=== PATIENT | male | born 1950 | race Hispanic/Latino ===

== ENCOUNTER → 2018-12-19 | Outpatient (CLI) | payer OTHER | END | disposition home or self-care (01) | LOC: RAH 15:27 | PROVIDERS: ATTEND Internal Medicine | DX: N20.0 Calculus of kidney (principal); N13.30 Unspecified hydronephrosis; I70.90 Unspecified atherosclerosis; K76.0 Fatty (change of) liver, not elsewhere classified; K44.9 Diaphragmatic hernia without obstruction or gangrene; M47.815 Spondylosis without myelopathy or radiculopathy, thoracolumbar region | CPT/HCPCS: 74176 ==

== ENCOUNTER → 2019-01-18 | Outpatient (CLI) | payer OTHER ==
[~2019-01-18] MED LIST: IOHEXOL-350 75 ML VIAL IV ONE
== END | disposition home or self-care (01) ==
LOC: RAH 07:53
PROVIDERS: ATTEND Urology
DX: N28.9 Disorder of kidney and ureter, unspecified (principal)
CPT/HCPCS: 74170; Q9967

== ENCOUNTER → 2019-02-14 | Outpatient (CLI) | payer OTHER | END | disposition home or self-care (01) | LOC: RAH 15:02 | PROVIDERS: ATTEND Internal Medicine Cardiovascular Disease | DX: Z13.6 Encounter for screening for cardiovascular disorders (principal) | CPT/HCPCS: 75571 ==

== ENCOUNTER → 2019-06-20 | Outpatient (CLI) | payer OTHER ==
[~2019-06-20] MED LIST changes: +HONEY 1 APPL/ML TUBE TP ONE; -IOHEXOL-350 75 ML VIAL IV ONE; +SILVER NITRATE APPLICATOR 1 SWAB TP ONE
[2019-06-20 15:24] VITALS: BP 113/65
[2019-06-20 15:43] LABS: ALBUMIN 3.1 g/dL (3.5-5.0); CREATININE 1.1 mg/dL (0.5-1.5); CRP QUANTITATIVE 3.4 mg/L (0.00-9.0); POTASSIUM 4.5 mmol/L (3.5-5.1)
== END | disposition home or self-care (01) ==
LOC: WHH 14:00
PROVIDERS: ATTEND Family Medicine
DX: E11.621 Type 2 diabetes mellitus with foot ulcer (principal); L97.525 Non-pressure chronic ulcer of other part of left foot with muscle involvement without evidence of necrosis; I10 Essential (primary) hypertension; G82.20 Paraplegia, unspecified; Z99.3 Dependence on wheelchair; N28.9 Disorder of kidney and ureter, unspecified; Z85.53 Personal history of malignant neoplasm of renal pelvis; Z79.4 Long term (current) use of insulin
CPT/HCPCS: 11043; 36415; 80048; 82040; 85651; 86140; 87070; 87077; 87186; A6196

== ENCOUNTER → 2019-06-22 | Outpatient (CLI) | payer OTHER | END | disposition home or self-care (01) | LOC: WHH 13:55 | PROVIDERS: ATTEND Family Medicine | DX: E11.621 Type 2 diabetes mellitus with foot ulcer (principal); L97.521 Non-pressure chronic ulcer of other part of left foot limited to breakdown of skin; I10 Essential (primary) hypertension; G82.20 Paraplegia, unspecified; N28.9 Disorder of kidney and ureter, unspecified; Z79.4 Long term (current) use of insulin; Z85.53 Personal history of malignant neoplasm of renal pelvis; Z99.3 Dependence on wheelchair | CPT/HCPCS: 93922 ==

== ENCOUNTER → 2019-06-27 | Outpatient (CLI) | payer OTHER ==
[~2019-06-27] MED LIST changes: -HONEY 1 APPL/ML TUBE TP ONE; +LIDOCAINE/PRILOCAINE CREAM 5GM TUBE TP ONE; -SILVER NITRATE APPLICATOR 1 SWAB TP ONE
[2019-06-27 15:23] VITALS: BP 106/60
== END | disposition home or self-care (01) ==
LOC: WHH 13:40
PROVIDERS: ATTEND Family Medicine
DX: E11.621 Type 2 diabetes mellitus with foot ulcer (principal); L97.525 Non-pressure chronic ulcer of other part of left foot with muscle involvement without evidence of necrosis; L84 Corns and callosities; I10 Essential (primary) hypertension; G82.20 Paraplegia, unspecified; N28.9 Disorder of kidney and ureter, unspecified; Z99.3 Dependence on wheelchair; Z85.53 Personal history of malignant neoplasm of renal pelvis; Z79.4 Long term (current) use of insulin
CPT/HCPCS: 11043; A6213; J3490; 11042

== ENCOUNTER → 2019-07-07 | Outpatient (CLI) | payer OTHER ==
[2019-07-07 14:25] VITALS: BP 108/67
== END | disposition home or self-care (01) ==
LOC: WHH 13:15
PROVIDERS: ATTEND Family Medicine
DX: E11.621 Type 2 diabetes mellitus with foot ulcer (principal); L97.525 Non-pressure chronic ulcer of other part of left foot with muscle involvement without evidence of necrosis; L84 Corns and callosities; I10 Essential (primary) hypertension; G82.20 Paraplegia, unspecified; N28.9 Disorder of kidney and ureter, unspecified; Z99.3 Dependence on wheelchair; Z85.53 Personal history of malignant neoplasm of renal pelvis; Z79.4 Long term (current) use of insulin
CPT/HCPCS: 11044; 73630; 87070; 87077; 87186; A6196

== ENCOUNTER → 2019-07-12 | Outpatient (CLI) | payer OTHER ==
[2019-07-12 13:47] VITALS: BP 104/62
== END | disposition home or self-care (01) ==
LOC: WHH 08:00
PROVIDERS: ATTEND Podiatrist Foot & Ankle Surgery
DX: E11.621 Type 2 diabetes mellitus with foot ulcer (principal); L97.525 Non-pressure chronic ulcer of other part of left foot with muscle involvement without evidence of necrosis; I10 Essential (primary) hypertension; G82.20 Paraplegia, unspecified; N28.9 Disorder of kidney and ureter, unspecified; Z99.3 Dependence on wheelchair; Z79.4 Long term (current) use of insulin
CPT/HCPCS: A6196; G0463

== ENCOUNTER → 2019-07-19 | Outpatient (CLI) | payer OTHER ==
[~2019-07-19] MED LIST changes: +AMPICILLIN PO; +BACL10TA PO; -LIDOCAINE/PRILOCAINE CREAM 5GM TUBE TP ONE; +LISI1TAB32 PO; +METO-408 PO; +PRAV20TA4 PO; +SOLI5TAB6 PO
[2019-07-19 11:49] VITALS: BP 126/76
== END | disposition home or self-care (01) ==
LOC: WHH 08:00
PROVIDERS: ATTEND Podiatrist Foot & Ankle Surgery
DX: E11.621 Type 2 diabetes mellitus with foot ulcer (principal); L97.521 Non-pressure chronic ulcer of other part of left foot limited to breakdown of skin; E11.69 Type 2 diabetes mellitus with other specified complication; M86.8X7 Other osteomyelitis, ankle and foot; I10 Essential (primary) hypertension; N28.9 Disorder of kidney and ureter, unspecified; G82.20 Paraplegia, unspecified; Z99.3 Dependence on wheelchair; Z85.53 Personal history of malignant neoplasm of renal pelvis; Z79.4 Long term (current) use of insulin
CPT/HCPCS: A6196; G0463

== ENCOUNTER 2019-07-21 10:26 | Day surgery (SDC) | payer OTHER ==
[2019-07-19 10:40] VITALS: BP 143/88
[2019-07-19 11:00] LABS: POTASSIUM 4.7 mmol/L (3.5-5.1)
[~2019-07-21] VITALS: Ht 175.3 cm; Wt 108.9 kg
[2019-07-21] VITALS (16 sets, daily range): BP systolic 118–135; BP diastolic 61–83
[~2019-07-21 10:26] MED LIST changes: +HONEY 1 APPL/ML TUBE TP SCH
[2019-07-21] MEDS ORDERED: SODIUM CHLORIDE 0.9% 1000ML 1,000 ML IV ONE (11:35)
[2019-07-21] MEDS ORDERED: LIDOCAINE PF 2% 5ML ABBOJECT ONE (13:01)
[2019-07-21] MEDS ORDERED: PROPOFOL 10 MG/ML 20ML VIAL IV ONE (13:01)
[2019-07-21] MEDS ORDERED: FENTANYL CITRATE PF 50 MCG/1 ML 2ML VIAL ONE (13:02)
[2019-07-21] MEDS ORDERED: MIDAZOLAM HCL 1 MG/ML 2ML VIAL ONE (13:02)
[2019-07-21] MEDS ORDERED: ONDANSETRON HCL 4 MG/2 ML VIAL ONE (13:02)
[2019-07-21] MEDS ORDERED: DEXAMETHASONE SOD PHOSPHATE 10MG/ML 1ML VIAL ONE (13:02)
[2019-07-21] MEDS ORDERED: EPHEDRINE SULFATE 50 MG/ML AMPULE ONE (13:31)
== END 2019-07-21 16:14 | disposition home or self-care (01) ==
LOC: DAH 10:26
PROVIDERS: ATTEND Podiatrist Foot & Ankle Surgery
DX: E11.621 Type 2 diabetes mellitus with foot ulcer (principal); L97.529 Non-pressure chronic ulcer of other part of left foot with unspecified severity; I70.25 Atherosclerosis of native arteries of other extremities with ulceration; E11.21 Type 2 diabetes mellitus with diabetic nephropathy; I12.9 Hypertensive chronic kidney disease with stage 1 through stage 4 chronic kidney disease, or unspecified chronic kidney disease; E11.22 Type 2 diabetes mellitus with diabetic chronic kidney disease; N18.2 Chronic kidney disease, stage 2 (mild); E78.2 Mixed hyperlipidemia; M81.0 Age-related osteoporosis without current pathological fracture; E66.01 Morbid (severe) obesity due to excess calories; Z68.35 Body mass index [BMI] 35.0-35.9, adult; Z88.8 Allergy status to other drugs, medicaments and biological substances; Z79.82 Long term (current) use of aspirin; Z79.899 Other long term (current) drug therapy; Z79.4 Long term (current) use of insulin; Z85.528 Personal history of other malignant neoplasm of kidney; Z98.49 Cataract extraction status, unspecified eye; Z90.5 Acquired absence of kidney
CPT/HCPCS: 28122; 36415; 80048; 82948 ×2; A4215; A4221; A4222; A4223; A4606; A4663; A5113; A6260; A6446; J1100; J2001; J2250; J2405; J2704; J3010; J3490; J7030; Q4131

== ENCOUNTER → 2019-07-24 | Outpatient (CLI) | payer OTHER ==
[~2019-07-24] MED LIST changes: -HONEY 1 APPL/ML TUBE TP SCH
[2019-07-24 10:07] VITALS: BP 124/68
== END | disposition home or self-care (01) ==
LOC: WHH 08:45
PROVIDERS: ATTEND Podiatrist Foot & Ankle Surgery
DX: E11.621 Type 2 diabetes mellitus with foot ulcer (principal); L97.521 Non-pressure chronic ulcer of other part of left foot limited to breakdown of skin; E11.69 Type 2 diabetes mellitus with other specified complication; M86.8X7 Other osteomyelitis, ankle and foot; I10 Essential (primary) hypertension; N28.9 Disorder of kidney and ureter, unspecified; G82.20 Paraplegia, unspecified; Z99.3 Dependence on wheelchair; Z85.53 Personal history of malignant neoplasm of renal pelvis; Z79.4 Long term (current) use of insulin
CPT/HCPCS: A6197; G0463

== ENCOUNTER → 2019-07-26 | Outpatient (CLI) | payer OTHER ==
[2019-07-26 14:34] VITALS: BP 125/73
== END | disposition home or self-care (01) ==
LOC: WHH 08:15
PROVIDERS: ATTEND Podiatrist Foot & Ankle Surgery
DX: E11.621 Type 2 diabetes mellitus with foot ulcer (principal); L97.521 Non-pressure chronic ulcer of other part of left foot limited to breakdown of skin; E11.69 Type 2 diabetes mellitus with other specified complication; M86.8X7 Other osteomyelitis, ankle and foot; E11.22 Type 2 diabetes mellitus with diabetic chronic kidney disease; I12.9 Hypertensive chronic kidney disease with stage 1 through stage 4 chronic kidney disease, or unspecified chronic kidney disease; N18.2 Chronic kidney disease, stage 2 (mild); E11.21 Type 2 diabetes mellitus with diabetic nephropathy; N28.9 Disorder of kidney and ureter, unspecified; G82.20 Paraplegia, unspecified; E78.2 Mixed hyperlipidemia; E66.01 Morbid (severe) obesity due to excess calories; M81.0 Age-related osteoporosis without current pathological fracture; Z99.3 Dependence on wheelchair; Z85.53 Personal history of malignant neoplasm of renal pelvis; Z79.4 Long term (current) use of insulin; Z88.8 Allergy status to other drugs, medicaments and biological substances; Z79.82 Long term (current) use of aspirin
CPT/HCPCS: A6196; G0463

== ENCOUNTER → 2019-08-02 | Outpatient (CLI) | payer OTHER ==
[2019-08-02 11:53] VITALS: BP 108/64
== END | disposition home or self-care (01) ==
LOC: WHH 08:15
PROVIDERS: ATTEND Podiatrist Foot & Ankle Surgery
DX: T86.828 Other complications of skin graft (allograft) (autograft) (principal); E11.621 Type 2 diabetes mellitus with foot ulcer; L97.521 Non-pressure chronic ulcer of other part of left foot limited to breakdown of skin; E11.69 Type 2 diabetes mellitus with other specified complication; M86.8X7 Other osteomyelitis, ankle and foot; E11.22 Type 2 diabetes mellitus with diabetic chronic kidney disease; I12.9 Hypertensive chronic kidney disease with stage 1 through stage 4 chronic kidney disease, or unspecified chronic kidney disease; N18.2 Chronic kidney disease, stage 2 (mild); E11.21 Type 2 diabetes mellitus with diabetic nephropathy; G82.20 Paraplegia, unspecified; E78.2 Mixed hyperlipidemia; E66.01 Morbid (severe) obesity due to excess calories; M81.0 Age-related osteoporosis without current pathological fracture; Z99.3 Dependence on wheelchair; Z85.53 Personal history of malignant neoplasm of renal pelvis; Z79.82 Long term (current) use of aspirin; Z79.4 Long term (current) use of insulin; Z88.8 Allergy status to other drugs, medicaments and biological substances; Y83.2 Surgical operation with anastomosis, bypass or graft as the cause of abnormal reaction of the patient, or of later complication, without mention of misadventure at the time of the procedure
CPT/HCPCS: G0463

== ENCOUNTER → 2019-08-23 | Outpatient (CLI) | payer OTHER ==
[2019-08-23 14:13] VITALS: BP 125/71
== END | disposition home or self-care (01) ==
LOC: WHH 09:15
PROVIDERS: ATTEND Podiatrist Foot & Ankle Surgery
DX: T86.828 Other complications of skin graft (allograft) (autograft) (principal); E11.621 Type 2 diabetes mellitus with foot ulcer; L97.521 Non-pressure chronic ulcer of other part of left foot limited to breakdown of skin; E11.69 Type 2 diabetes mellitus with other specified complication; M86.8X7 Other osteomyelitis, ankle and foot; E11.22 Type 2 diabetes mellitus with diabetic chronic kidney disease; I12.9 Hypertensive chronic kidney disease with stage 1 through stage 4 chronic kidney disease, or unspecified chronic kidney disease; N18.2 Chronic kidney disease, stage 2 (mild); E11.21 Type 2 diabetes mellitus with diabetic nephropathy; G82.20 Paraplegia, unspecified; E78.2 Mixed hyperlipidemia; E66.01 Morbid (severe) obesity due to excess calories; M81.0 Age-related osteoporosis without current pathological fracture; Z99.3 Dependence on wheelchair; Z85.53 Personal history of malignant neoplasm of renal pelvis; Z79.82 Long term (current) use of aspirin; Z79.4 Long term (current) use of insulin; Z88.8 Allergy status to other drugs, medicaments and biological substances; Y83.2 Surgical operation with anastomosis, bypass or graft as the cause of abnormal reaction of the patient, or of later complication, without mention of misadventure at the time of the procedure
CPT/HCPCS: A6207; G0463

== ENCOUNTER → 2019-08-29 | Outpatient (CLI) | payer OTHER ==
[~2019-08-29] MED LIST changes: +GEL DRESSING 90 GM GEL TP ONE; +SILVER NITRATE APPLICATOR 1 SWAB TP ONE
[2019-08-29 14:45] VITALS: BP 142/86
== END | disposition home or self-care (01) ==
LOC: WHH 13:00
PROVIDERS: ATTEND Family Medicine
DX: T86.828 Other complications of skin graft (allograft) (autograft) (principal); E11.621 Type 2 diabetes mellitus with foot ulcer; L97.522 Non-pressure chronic ulcer of other part of left foot with fat layer exposed; E11.69 Type 2 diabetes mellitus with other specified complication; M86.8X7 Other osteomyelitis, ankle and foot; E11.22 Type 2 diabetes mellitus with diabetic chronic kidney disease; I12.9 Hypertensive chronic kidney disease with stage 1 through stage 4 chronic kidney disease, or unspecified chronic kidney disease; N18.2 Chronic kidney disease, stage 2 (mild); E11.21 Type 2 diabetes mellitus with diabetic nephropathy; G82.20 Paraplegia, unspecified; E78.2 Mixed hyperlipidemia; E66.01 Morbid (severe) obesity due to excess calories; M81.0 Age-related osteoporosis without current pathological fracture; Z99.3 Dependence on wheelchair; Z85.53 Personal history of malignant neoplasm of renal pelvis; Z79.82 Long term (current) use of aspirin; Z79.4 Long term (current) use of insulin; Z88.8 Allergy status to other drugs, medicaments and biological substances; Y83.2 Surgical operation with anastomosis, bypass or graft as the cause of abnormal reaction of the patient, or of later complication, without mention of misadventure at the time of the procedure
CPT/HCPCS: 11042

== ENCOUNTER → 2019-09-05 | Outpatient (CLI) | payer OTHER ==
[~2019-09-05] MED LIST changes: -GEL DRESSING 90 GM GEL TP ONE; -SILVER NITRATE APPLICATOR 1 SWAB TP ONE
[2019-09-05 14:29] VITALS: BP 136/84
== END | disposition home or self-care (01) ==
LOC: WHH 13:15
PROVIDERS: ATTEND Family Medicine
DX: T86.828 Other complications of skin graft (allograft) (autograft) (principal); E11.621 Type 2 diabetes mellitus with foot ulcer; L97.522 Non-pressure chronic ulcer of other part of left foot with fat layer exposed; E11.69 Type 2 diabetes mellitus with other specified complication; M86.8X7 Other osteomyelitis, ankle and foot; E11.22 Type 2 diabetes mellitus with diabetic chronic kidney disease; I12.9 Hypertensive chronic kidney disease with stage 1 through stage 4 chronic kidney disease, or unspecified chronic kidney disease; N18.2 Chronic kidney disease, stage 2 (mild); E11.21 Type 2 diabetes mellitus with diabetic nephropathy; G82.20 Paraplegia, unspecified; E78.2 Mixed hyperlipidemia; E66.01 Morbid (severe) obesity due to excess calories; M81.0 Age-related osteoporosis without current pathological fracture; Z99.3 Dependence on wheelchair; Z85.53 Personal history of malignant neoplasm of renal pelvis; Z79.82 Long term (current) use of aspirin; Z79.4 Long term (current) use of insulin; Z88.8 Allergy status to other drugs, medicaments and biological substances; Y83.2 Surgical operation with anastomosis, bypass or graft as the cause of abnormal reaction of the patient, or of later complication, without mention of misadventure at the time of the procedure
CPT/HCPCS: 11042; A6197; A6248

== ENCOUNTER 2019-09-26 13:00 | Outpatient (CLI) | payer OTHER ==
[2019-09-26 15:33] VITALS: BP 135/72
== END 2019-09-26 16:17 | disposition home or self-care (01) ==
LOC: WHH 13:00
PROVIDERS: ATTEND Family Medicine
DX: T86.828 Other complications of skin graft (allograft) (autograft) (principal); E11.621 Type 2 diabetes mellitus with foot ulcer; L97.528 Non-pressure chronic ulcer of other part of left foot with other specified severity; E11.69 Type 2 diabetes mellitus with other specified complication; M86.8X7 Other osteomyelitis, ankle and foot; E11.22 Type 2 diabetes mellitus with diabetic chronic kidney disease; I12.9 Hypertensive chronic kidney disease with stage 1 through stage 4 chronic kidney disease, or unspecified chronic kidney disease; N18.2 Chronic kidney disease, stage 2 (mild); E11.21 Type 2 diabetes mellitus with diabetic nephropathy; G82.20 Paraplegia, unspecified; E78.2 Mixed hyperlipidemia; E66.01 Morbid (severe) obesity due to excess calories; M81.0 Age-related osteoporosis without current pathological fracture; B35.1 Tinea unguium; Z99.3 Dependence on wheelchair; Z85.53 Personal history of malignant neoplasm of renal pelvis; Z79.82 Long term (current) use of aspirin; Z79.4 Long term (current) use of insulin; Z88.8 Allergy status to other drugs, medicaments and biological substances; Y83.2 Surgical operation with anastomosis, bypass or graft as the cause of abnormal reaction of the patient, or of later complication, without mention of misadventure at the time of the procedure
CPT/HCPCS: G0463